=== PATIENT | male | born 1965 | race Two or more races ===

== ENCOUNTER 2021-03-07 20:27 | Inpatient (IN) | payer MEDICARE, MEDICAID ==
[~2021-03-07] VITALS: Ht 172.7 cm; Wt 62.7 kg
[2021-03-07] MEDS ORDERED: SODIUM CHLORIDE 0.9% 100 ML ONE (21:00)
[2021-03-07] MEDS ORDERED: IOHEXOL 350 MG/ML 75 ML VIAL ONE (21:00)
[2021-03-07 21:02] LABS: BASOPHILS % (AUTO) 0.9 % (0.0-2.0); EOSINOPHILS % (AUTO) 2.1 % (1.0-6.0); HEMATOCRIT 35.2 % (41-53); LYMPHOCYTES # (AUTO) 1.4 K/uL (1.0-4.8); LYMPHOCYTES % (AUTO) 34.4 % (22.0-44.0); MEAN CORPUSCULAR HEMOGLOBIN 32.7 pg (26.0-34.0); MEAN CORPUSCULAR HGB CONC 34.1 G/dL (31.0-37.0); MEAN CORPUSCULAR VOLUME 96 fL (80-100); MONOCYTES # (AUTO) 0.5 K/uL (0.1-1.0); MONOCYTES % (AUTO) 11.3 % (2.0-9.0); NEUTROPHILS # (AUTO) 2.1 K/uL (1.8-7.7); NEUTROPHILS % (AUTO) 51.3 % (40.0-70.0); PLATELET COUNT (AUTO) 108 K/uL (150-450); RED BLOOD CELL COUNT(AUTO) 3.67 MIL/uL (4.50-5.90)
[2021-03-07 21:12] LABS: CALCIUM, TOTAL 8.4 mg/dL (8.8-10.5); CREATININE 2.11 mg/dL (0.60-1.30); POTASSIUM 3.1 mmol/L (3.5-5.1)
[2021-03-07] MEDS ORDERED: ALTEPLASE PER STROKE PROTOCOL CLINICAL ONE (21:15)
[2021-03-07 21:17] LABS: INR 1.1 (0.9-1.1)
[2021-03-07 21:18] LABS: ALBUMIN 2.9 g/dL (3.4-5.0); TOTAL PROTEIN, SERUM 7.9 g/dL (6.4-8.2)
[2021-03-07] MEDS ORDERED: ATOR40TA28 PO (21:20)
[2021-03-07] MEDS ORDERED: FERR210T PO (21:20)
[2021-03-07] MEDS ORDERED: IBUP-2070 PO (21:20)
[2021-03-07] MEDS ORDERED: RIFAX550 PO (21:20)
[2021-03-07] MEDS ORDERED: ASPI-1227 PO (21:20)
[2021-03-07 21:21] LABS: B-TYPE NATRIURETIC PEPTIDE 893 pg/mL (0-100)
[2021-03-07 21:41] LABS: COVID AG,FIA SOURCE NASOPHARYNGEAL
[2021-03-07] MEDS ORDERED: ASPIRIN 325 MG TABLET PO ONE (21:45)
[2021-03-07] MEDS ORDERED: ACETAMINOPHEN 325 MG TABLET PO PRN (22:00)
[2021-03-07] MEDS ORDERED: ONDANSETRON HCL 4 MG/2 ML VIAL IVP PRN (22:00)
[2021-03-07 22:05] LABS: APPEARANCE,URINE CLEAR (CLEAR); BILIRUBIN,URINE NEGATIVE (NEGATIVE); GLUCOSE, URINE (UA) 100 mg/dL (NEGATIVE); KETONES,URINE NEGATIVE (NEGATIVE); LEUKOCYTE ESTERASE ,URINE TRACE (NEGATIVE); NITRATE,URINE NEGATIVE (NEGATIVE); OCCULT BLOOD,URINE SMALL (NEGATIVE); PROTEIN,URINE SEE CONFIRM (NEGATIVE); UROBILINOGEN,URINE 0.2 mg/dL (<=1.0)
[2021-03-07 22:11] LABS: AMPHET/METH SCREEN,URINE NEGATIVE (NEGATIVE); BARBITURATE SCREEN, URINE NEGATIVE (NEGATIVE); BENZODIAZEPINES SCREEN,URINE NEGATIVE (NEGATIVE); CANNABINOID SCREEN,URINE NEGATIVE (NEGATIVE); COCAINE SCREEN,URINE NEGATIVE (NEGATIVE); METHADONE SCREEN, URINE NEGATIVE (NEGATIVE); OPIATE SCREEN,URINE NEGATIVE (NEGATIVE); PHENCYCLIDINE SCREEN,URINE NEGATIVE (NEGATIVE)
[2021-03-07 22:14] LABS: SULFOSALICYLIC ACID,URINE 4+ (Negative)
[2021-03-07 22:15] LABS: RBC,URINE 0-2 /HPF (0-2)
[2021-03-07 22:17] LABS: BACTERIA,URINE Rare /HPF (None Seen); SQUAMOUS EPITHELIAL CELL,UR Rare /LPF (None Seen)
[2021-03-07] MEDS ORDERED: POTASSIUM CHLORIDE 20 MEQ ER TABLET PO ONE (22:30)
[2021-03-07] MEDS ORDERED: CefTRIAXone 1 GM/DEXTROSE 50 ML IV ONE (22:30)
[2021-03-08 00:30] VITALS: BP 158/78
[2021-03-08] MEDS: HEPARIN SODIUM,PORCINE 5,000 UNITS/ML VIAL SQ SCH ×3 (00:36→17:43)
[2021-03-08 04:16] VITALS: BP 159/73
[2021-03-08 07:33] VITALS: BP 142/52
[2021-03-08] MEDS ORDERED: DEXTROSE 50%-WATER 25 GM/50 ML SYRINGE IVP PRN (08:00)
[2021-03-08] MEDS ORDERED: ATORVASTATIN CALCIUM 40 MG TABLET PO SCH (09:00)
[2021-03-08] MEDS ORDERED: ASPIRIN 81 MG DR TABLET PO SCH (09:00)
[2021-03-08] MEDS: IBUPROFEN 600 MG TABLET PO SCH ×3 (11:12→21:06)
[2021-03-08] MEDS ORDERED: FERRIC CITRATE 210 MG PO SCH (12:00)
[2021-03-08] MEDS: INSULIN LISPRO 100 UNITS/ML SQ PRN ×2 (12:19→19:03)
[2021-03-08 13:01] VITALS: BP 148/69
[2021-03-08] MEDS ORDERED: CEPH500C3 PO (13:37)
[2021-03-08 13:48] LABS: GLUCOMETER DEV NAME(LOC) 5S.1; GLUCOSE,POINT OF CARE 265 MG/DL (70-110)
[2021-03-08 16:11] VITALS: BP 150/54
[2021-03-08 19:10] LABS: GLUCOMETER DEV NAME(LOC) 5S.1; GLUCOSE,POINT OF CARE 255 MG/DL (70-110)
[2021-03-08 19:53] VITALS: BP 142/71
== END 2021-03-08 21:40 | disposition home or self-care (01) | DRG 69 ==
LOC: EMS 20:27 → 5S 23:14
PROVIDERS: ADMIT Internal Medicine; ATTEND Internal Medicine
DX: G45.9 Transient cerebral ischemic attack, unspecified (principal); N18.6 End stage renal disease; I12.0 Hypertensive chronic kidney disease with stage 5 chronic kidney disease or end stage renal disease; N39.0 Urinary tract infection, site not specified; R47.01 Aphasia; Z20.822 Contact with and (suspected) exposure to COVID-19; I95.9 Hypotension, unspecified; E78.5 Hyperlipidemia, unspecified; E11.22 Type 2 diabetes mellitus with diabetic chronic kidney disease; R29.810 Facial weakness; R47.1 Dysarthria and anarthria; E87.5 Hyperkalemia; E11.51 Type 2 diabetes mellitus with diabetic peripheral angiopathy without gangrene; Z99.2 Dependence on renal dialysis; Z79.82 Long term (current) use of aspirin; Z79.899 Other long term (current) drug therapy
CPT/HCPCS: 70496; 70551; 71045; 80053; 81001; 81002; 82962; 83880; 84484; 85025; 85610; 85730; 86850; 86900; 86901; 87081; 87086; 92610; 93005; 93306; 93880; 97162; 97165; 99291; A9575; G0480; J0696; J1644; J7050; 36415-L1; 36415-TC; 70450; 70450-TC